=== PATIENT | female | born 1960 | race Caucasian/White ===

== ENCOUNTER 2016-05-15 16:23 | Emergency (ER) | payer BC ==
[~2016-05-15] VITALS: Ht 170.2 cm; Wt 122.3 kg
[~2016-05-15 16:23] MED LIST: ASCA500 PO; ASPEC81 PO; CHOL100010 PO; LISI-461 PO; MULT-506 PO; OMEG10007 PO; SIMV20TA2 PO; SYN125 PO
[2016-05-15 16:35] VITALS: TEMP 36.9; Ht 170.2 cm; Wt 122.3 kg
[2016-05-15] MEDS ORDERED: SODIUM CHLORIDE 0.9% 1000ML 500 ML IV STA (16:50)
--- NOTE | 2016-05-15 16:55 | EMERGENCY ROOM VISIT NOTE ---
History Report prepared by Sylvia: Jay De Leon Under the Supervision of: Dr. Jose Garces M.D. First contact with patient: 16:43 Chief Complaint: ANXIETY Stated Complaint: HEART PALPATATIONS, ANXIETY History of Present Illness The patient is a 56 year old female who presents to the Emergency Room with concerns over intermittent heart palpitations that began one week prior to arrival. The patient states that she has experienced the palpitations at some point throughout the day every day over the past week. Most often the palpitations come at night while she is trying to fall asleep. At night it feels as though her heart is "jumping around." The patient states that the episodes usually last anywhere from 1-15 minutes before resolving spontaneously. She was diagnosed with palpitations in 2003, and at the same time was diagnosed with a thyroid condition. The patient does have a history of anxiety and has been under increased stress over the past two weeks. Over the past two weeks she experienced the loss of her eexwvd-re-oid, pain in her neck from a bulging cervical disk, and a head cold. She has been taking Ativan to help her relax, but it is not remedying the palpitations. She was on Prednisone for her neck but she stopped this at least a week ago. 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 A total of 10 systems reviewed and were otherwise negative. Past Medical & Surgical Medical Problems: (1) Anxiety Family History No pertinent family history recorded. Social History Alcohol Use: occasionally Marital Status: Housing Status: lives with significant other Occupation Status: employed Current/Historical Medications Scheduled Aspirin (Aspirin Ec), 81 MG PO DAILY B-Complex W/Biotin & Folic Aci (Super B-100), 1 TAB PO DAILY Cholecalciferol (Vitamin D3), 1 TAB PO DAILY Fish Oil (Lookout-3), 1 CAP PO DAILY Levothyroxine Sodium (Synthroid), 175 MCG PO DAILY Multivitamin (Multivitamin), 1 TAB PO DAILY Pravastatin Sod (Pravastatin Sodium), 10 MG PO DAILY Vitamins C & E (Vitamin C), 1 CAP PO DAILY Scheduled PRN Lorazepam (Ativan), 0.5 MG PO Q6H PRN for Anxiety Allergies Coded Allergies: Doxycycline (Unverified Allergy, Severe, RASH, 05/15/16) Sulfa Antibiotics (Unverified Allergy, Intermediate, RASH, HIVES, 05/15/16) Uncoded Allergies: SULFA (Allergy, Unknown, HIVES, SWELLING, HEART PALPITATIONS, 08/03/02) Physical Exam Vital Signs Date Time Temp Pulse Resp B/P Pulse Ox O2 Delivery O2 Flow Rate FiO2 05/15/16 18:25 80 16 134/85 05/15/16 18:19 81 05/15/16 17:51 82 18 166/116 94 Room Air 05/15/16 16:35 36.9 96 18 194/103 96 Room Air Physical Exam GENERAL: Patient is in no acute distress. HEENT: No acute trauma, normocephalic atraumatic, mucous membranes moist, no nasal congestion, no scleral icterus. TMs are clear bilaterally. NECK: No stridor, no adenopathy, no meningismus, trachea is midline. LUNGS: Clear to auscultation bilaterally, no wheeze, no rhonchi, breath sounds equal. HEART: Without murmurs gallops or rubs, regular rate and rhythm. ABDOMEN: Soft, nontender, bowel sounds positive, no hernias, no peritonitis. EXTREMITIES: No cyanosis or edema, full range of motion of all the joints without pain or difficulty, no signs for acute trauma. NEUROLOGIC: Oriented x 3, no acute motor or sensory deficits, no focal weakness. SKIN: No rash, no jaundice, no diaphoresis. Medical Decision & Procedures ER Provider Diagnostic Interpretation: X ray results and stated below per my interpretation and radiologist interpretation. Other radiology results and stated below per my review and radiologist interpretation: CHEST ONE VIEW PORTABLE CLINICAL HISTORY: Chest pain. Palpitations. COMPARISON STUDY: Chest radiograph July 20, 2012 and FINDINGS: Lung volumes are normal. Lungs are clear. There is no pneumothorax or pleural effusion. Cardiac size is at the upper limits of normal. There is no evidence of pulmonary edema. IMPRESSION: No acute cardiopulmonary findings. Electronically signed by: Jasvir Echavarria M.D. 05/15/2016 5:18 PM Dictated Date/Time: 05/15/2016 5:17 PM Laboratory Results 05/15/16 17:42 05/15/16 17:42 Test 05/15/16 17:42 Red Blood Count 4.55 M/uL (4.2-5.4) Mean Corpuscular Volume 88.8 fL (80-100) Mean Corpuscular Hemoglobin 30.3 pg (25-34) Mean Corpuscular Hemoglobin Concent 34.2 g/dl (32-36) RDW Standard Deviation 42.8 fL (36.4-46.3) RDW Coefficient of Variation 13.1 % (11.5-14.5) Mean Platelet Volume 9.2 fL (7.4-10.4) Anion Gap 13.0 mmol/L (3-11) Est Creatinine Clear Calc Drug Dose 109.4 ml/min Estimated GFR () 100.2 Estimated GFR (Non- 86.5 BUN/Creatinine Ratio 24.7 (10-20) Calcium Level 9.2 mg/dl (8.5-10.1) Magnesium Level 2.2 mg/dl (1.8-2.4) Total Bilirubin 0.3 mg/dl (0.2-1) Aspartate Amino Transf (AST/SGOT) 21 U/L (15-37) Alanine Aminotransferase (ALT/SGPT) 28 U/L (12-78) Alkaline Phosphatase 77 U/L (45-117) Total Creatine Kinase 59 U/L (26-192) Troponin I < 0.015 ng/ml (0-0.045) Total Protein 7.6 gm/dl (6.4-8.2) Albumin 3.9 gm/dl (3.4-5.0) Globulin 3.7 gm/dl (2.5-4.0) Albumin/Globulin Ratio 1.1 (0.9-2) Thyroid Stimulating Hormone (TSH) 2.760 uIu/ml (0.300-4.500) Free Thyroxine 1.31 ng/dl (0.80-1.60) Laboratory results reviewed by me. Medications Administered Medications (Trade) Dose Ordered Sig/Sandrine Route Start Time Stop Time Status Last Admin Dose Admin Sodium Chloride (Nss 1000ml) 500 ml @ 999 mls/hr Q31M STAT IV 05/15/16 16:50 05/15/16 17:20 DC 05/15/16 16:50 999 MLS/HR ECG Indication: palpitations Rate (beats per minute): 86 Rhythm: normal sinus Findings: no acute ischemic change, no ectopy, other (Poor R-wave progression) ED Course 1644: The patient was evaluated in room B9. A complete history and physical exam was performed. 1650: Ordered Sodium Chloride 500 mL @ 999 mL/hr IV. 184: I reevaluated the patient at this time. I discussed results and discharge instructions: She verbalized understanding and agreement. The patient is ready for discharge. Medical Decision Differential diagnosis include: Anxiety, viral illness, electrolyte imbalance, anemia, dysrhythmia, cardiomegaly, and thyroid disorder. There is no leukocytosis or concerning anemia. No significant electrolyte abnormality, kidney failure, hepatitis. The patient appears to be in a euthyroid state. EKG shows a normal sinus rhythm, no acute ischemia. Cardiac enzyme testing times one is not consistent with acute cardiac injury. Chest film shows no cardiomegaly, pneumonia or CHF. On exam, there were no focal neurologic deficits. The patient was not toxic, febrile or in any distress. The patient received IV saline, she has done well. She has had no recurrence of symptoms. Her rhythm has been sinus on the monitor. The patient is being discharged, she was reassured. She was encouraged to stay well hydrated. She will talk with her doctor tomorrow about possibly a Holter monitor. She was encouraged to return here for more persistent or longer lasting symptoms. I suspect her presentation today is multifactorial--her stress, her lack of sleep, her recent viral illness are all likely partly responsible for her presentation today. Impression Primary Impression: Palpitations Scribe Attestation The scribe's documentation has been prepared under my direction and personally reviewed by me in its entirety. I confirm that the note above accurately reflects all work, treatment, procedures, and medical decision making performed by me. Departure Information Dispostion Home / Self-Care Referrals Nick Gonsalez Jr,D.O. (PCP) Forms HOME CARE DOCUMENTATION FORM, IMPORTANT VISIT INFORMATION Patient Instructions My [facility] Additional Instructions ab testing today was all ok follow with jimbo odonnell this week--you may need a Holter monitor return for worsening symptoms
--- NOTE | 2016-05-15 17:19 | DIAGNOSTIC IMAGING REPORT ---
CHEST ONE VIEW PORTABLE CLINICAL HISTORY: Chest pain. Palpitations. COMPARISON STUDY: Chest radiograph July 20, 2012 and FINDINGS: Lung volumes are normal. Lungs are clear. There is no pneumothorax or pleural effusion. Cardiac size is at the upper limits of normal. There is no evidence of pulmonary edema. IMPRESSION: No acute cardiopulmonary findings. Electronically signed by: Jasvir Echavarria M.D. 05/15/2016 5:18 PM Dictated Date/Time: 05/15/2016 5:17 PM
[2016-05-15 17:51] VITALS: O2SAT 94
[2016-05-15 17:52] LABS: HEMATOCRIT 40.4 % (37-47); MEAN CELL VOLUME 88.8 fL (80-100); MEAN CORPUSCULAR HEMOGLOBIN 30.3 pg (25-34); MEAN CORPUSCULAR HGB CONC 34.2 g/dl (32-36); MEAN PLATELET VOLUME 9.2 fL (7.4-10.4); PLATELET COUNT 224 K/uL (130-400); RED BLOOD COUNT 4.55 M/uL (4.2-5.4); WHITE BLOOD COUNT 5.99 K/uL (4.8-10.8)
[2016-05-15 18:08] LABS: ALT/SGPT 28 U/L (12-78); AST/SGOT 21 U/L (15-37); BLOOD UREA NITROGEN 19 mg/dl (7-18); BUN/CREATININE RATIO 24.7 (10-20); CALCIUM 9.2 mg/dl (8.5-10.1); CARBON DIOXIDE 23 mmol/L (21-32); CHLORIDE 107 mmol/L (98-107); CREATININE 0.76 mg/dl (0.60-1.20); GLUCOSE 83 mg/dl (70-99); MAGNESIUM 2.2 mg/dl (1.8-2.4); POTASSIUM 3.8 mmol/L (3.5-5.1); SODIUM 143 mmol/L (136-145)
[2016-05-15 18:16] LABS: ALB/GLOB RATIO 1.1 (0.9-2); ALKALINE PHOSPHATASE 77 U/L (45-117)
[2016-05-15 18:25] VITALS: BP 134/85; PULSE 80
[2016-05-15] MEDS ORDERED: CHOL1000 PO (18:44)
[2016-05-15] MEDS ORDERED: LORA-741 PO (18:44)
[2016-05-15] MEDS ORDERED: VITACAP26 PO (18:44)
[2016-05-15] MEDS ORDERED: ASPI81TA28 PO (18:44)
[2016-05-15] MEDS ORDERED: OMEG10007 PO (18:44)
[2016-05-15] MEDS ORDERED: LEVO175T PO (18:44)
[2016-05-15] MEDS ORDERED: PRVC10 PO (18:44)
[2016-05-15] MEDS ORDERED: B-COTAB4 PO (18:44)
[2016-05-15] MEDS ORDERED: MULT-506 PO (18:44)
[2016-07-01] MEDS ORDERED: OMEP20CA59 PO (10:06)
== END 2016-05-15 18:47 | disposition home or self-care (01) ==
LOC: C.EDB 16:25
DX: R00.2 Palpitations (principal); F41.9 Anxiety disorder, unspecified; Z79.82 Long term (current) use of aspirin; Z79.899 Other long term (current) drug therapy

== ENCOUNTER → 2016-06-21 | Outpatient (CLI) | payer BC ==
[~2016-06-21] MED LIST changes: -ASCA500 PO; -ASPEC81 PO; +ASPI81TA28 PO; +B-COTAB4 PO; +CHOL1000 PO; -CHOL100010 PO; +LEVO175T PO; -LISI-461 PO; +LORA-741 PO; +OMEP20CA59 PO; +PERFLUTREN LIPID MICROSPHERE (DEFINITY) IV ONE; +PRVC10 PO; -SIMV20TA2 PO; -SYN125 PO; +VITACAP26 PO
--- NOTE | 2016-06-21 21:02 | EXERCISE STRESS ECHO ---
*NOTICE TO RECEIVING DEMOCRAT AGENCY This information is strictly Confidential and protected under [place] law. [place] law prohibits you from making any further disclosure of this information unless further disclosure is expressly permitted by the written consent of the person to whom it pertains or is authorized by law. A general authorization for the release of medical or other information is not sufficient for this purpose. Hospital accepts no responsibility if the information is made available to any other person, INCLUDING THE PATIENT. Interpretation Summary * Name: DES YEUNG Study Date: 06/21/2016 08:38 AM BP: 139/80 mmHg * Patient Location: [facility] HR: 94 * : 1960 (M/d/yyyy) Gender: Female Height: 66 in * Age: 56 yrs Ethnicity: CA Weight: 262 lb * Referring Physician: JORGE * Performed By: Amber Swenson RDCS * * Reason For Study: PALPITATIONS * BSA: 2.2 m2 * History: PALPITATIONS, EXERTIONAL DYSPNEA * -- Conclusions -- * Stress Echo: * 1. Negative stress echo for ischemia at 96% MPHR. * 2. Negative exercise ECG for ischemia at 96% MPHR. * 3. No chest pain reported. * 4. Appropriate blood pressure response to exercise. * 5. No arrhythmia. * 6. Poor exercise tolerance. * 7. Technically difficult study, enhanced with IV Definity. * Echo: * 1. Normal left ventricular size and systolic function. EF 60-65%. No regional wall motion abnormalities. No left ventricular hypertrophy. Type 1 diastolic dysfunction. * 2. No significant valvular abnormalities visualized. * 3. Technically difficult study. Procedure Details * ECHOEX, CPT #53966 * A contrast injection of Definity was performed to improve assessment of LV function. * Contrast was injected into an intravenous site in the right arm. * One vial of Definity ultrasound contrast was diluted in normal saline to a total volume of 10 ml. A total of '4' ml of solution was administered during imaging. * Lot # [id number] of Definity utilized for procedure. * Expiration date JUL 19. * The attending nurse who injected the contrast agent was FRANDY CLIFTON RN. Left Ventricle * The left ventricle is normal in size. * There is normal left ventricular wall thickness. * Ejection Fraction = 60-65%. * Left ventricular systolic function is normal. * Resting wall motion: Normal. Stress wall motion: Appropriate increase in Left ventricular systolic function and decrease in cavity size. No stress induced segmental wall motion abnormalities. * The left ventricular ejection fraction increases normally with stress. The left ventricular end-systolic cavity size reduces post-stress (normal response). The left ventricular wall motion with stress is normal. Right Ventricle * The right ventricle is normal in size and function. * The right ventricular systolic function is normal as assessed by tricuspid annular plane systolic excursion (TAPSE) (normal >1.5 cm). Atria * The left atrial size is normal. * Right atrial size is normal. * There is no evidence of atrial septal defect, but resolution does not allow assessment for a patent foramen ovale. Mitral Valve * The mitral valve is grossly normal. * There is no mitral valve stenosis. * Significant mitral regurgitation is absent. Tricuspid Valve * The tricuspid valve is not well visualized, but is grossly normal. * There is no tricuspid stenosis. * Significant tricuspid regurgitation is absent. Aortic Valve * The aortic valve is not well visualized. * No hemodynamically significant valvular aortic stenosis. * No aortic regurgitation is present. Pulmonic Valve * The pulmonary valve is inadequately visualized, but the Doppler data is adequate for interpretation. * There is no significant pulmonary regurgitation. Great Vessels * The aortic root is normal size. * Ascending aorta of normal dimension Pericardium * There is no pericardial effusion. Stress Parameters * NSR at 91 bpm. * Stress ECG: No ST changes. No arrhythmias. * No arrhythmia were noted with stress. * The stress portion of this study was personally supervised by the undersigned interpreting physician. * Rest heart rate was '94' BPM. * Rest blood pressure was '139/80' * Maximum heart rate achieved was 155 bpm. * Maximum heart rate was 96 % of maximum age-predicted heart rate. * Maximum blood pressure was '196/82' * Total exercise time was '3:58' * Maximum exercise MET level achieved was '5.70' METS * Maximum treadmill speed was '2.50' miles per hour. * Maximum treadmill elevation was '12.00'% grade. * Exercise was terminated due to 'fatigue' * Normal blood pressure response to exercise. MMode 2D Measurements and Calculations IVSd 0.92 cm IVSs 1.3 cm LVIDd 5.1 cm LVIDs 3.4 cm LVPWd 0.84 cm LVPWs 1.7 cm IVS/LVPW 1.1 FS 33.7 % EDV(Teich) 121.8 ml ESV(Teich) 46.1 ml EF(Teich) 62.2 % EDV(cubed) 129.8 ml ESV(cubed) 37.9 ml EF(cubed) 70.8 % % IVS thick 46.0 % % LVPW thick 97.0 % LV mass(C)d 156.6 grams LV mass(C)dI 69.8 grams/m\S\2 LV mass(C)s 182.3 grams LV mass(C)sI 81.3 grams/m\S\2 SV(Teich) 75.7 ml SI(Teich) 33.7 ml/m\S\2 SV(cubed) 91.9 ml SI(cubed) 41.0 ml/m\S\2 Ao root diam 3.2 cm Ao root area 8.2 cm\S\2 LA dimension 3.1 cm asc Aorta Diam 2.6 cm LA/Ao 0.97 Doppler Measurements and Calculations MV E max grabiel 52.4 cm/sec MV A max grabiel 59.7 cm/sec MV E/A 0.88 MV dec time 0.21 sec Ao V2 max 126.8 cm/sec Ao max PG 6.4 mmHg Ao max PG (full) 3.2 mmHg LV V1 max PG 3.3 mmHg LV V1 max 90.2 cm/sec TV E max grabiel 55.3 cm/sec
== END | disposition home or self-care (01) ==
LOC: C.CPL 08:29
DX: R00.2 Palpitations (principal); R06.9 Unspecified abnormalities of breathing

== ENCOUNTER → 2016-07-26 | Outpatient (CLI) | payer BC ==
[~2016-07-26] MED LIST changes: -PERFLUTREN LIPID MICROSPHERE (DEFINITY) IV ONE
--- NOTE | 2016-07-27 14:36 | MAMMOGRAPHY REPORT ---
BILATERAL DIGITAL SCREENING MAMMOGRAM TOMOSYNTHESIS WITH CAD: 07/26/2016 CLINICAL HISTORY: Routine screening. Patient has no complaints. TECHNIQUE: Breast tomosynthesis in addition to standard 2D mammography was performed. Current study was also evaluated with a Computer Aided Detection (CAD) system. COMPARISON: Comparison is made to exams dated: 07/08/2015 mammogram, 06/11/2014 mammogram, 04/05/2012 ma mmogram, 03/31/2011 mammogram, 03/29/2010 mammogram - [facility], and 12/18/2008. BREAST COMPOSITION: There are scattered areas of fibroglandular density in both breasts. FINDINGS: No suspicious mass, architectural distortion or cluster of microcalcifications is seen. IMPRESSION: ACR BI-RADS CATEGORY 1: NEGATIVE There is no mammographic evidence of malignancy. A 1 year screening mammogram is recommended. The p atient will receive written notification of the results. Approximately 10% of breast cancers are not detected with mammography. A negative mammographic repor t should not delay biopsy if a clinically suggestive mass is present. Krysta Wade M.D. ay/:07/27/2016 07:07:53 [employer]ating [employer]: Marlene JIMENEZ(R)(M), [facility] letter sent: Normal 1/2 BI-RADS Code: ACR BI-RADS Category 1: Negative
== END | disposition home or self-care (01) ==
LOC: C.MAMM 15:58
DX: Z12.31 Encounter for screening mammogram for malignant neoplasm of breast (principal)

== ENCOUNTER → 2016-09-15 | Outpatient (CLI) | payer BC ==
--- NOTE | 2016-09-15 10:45 | DIAGNOSTIC IMAGING REPORT ---
RIGHT HIP UNILATERAL MIN 2 VIEWS CLINICAL HISTORY: RIGHT HIP PAIN Right COMPARISON STUDY: None. FINDINGS: No fracture or dislocation within the right hip. The visualized pelvic bones are intact. Severe cartilage space narrowing within the superior aspect of the right hip with associated subchondral sclerosis and acetabular osteophytes. This is consistent with osteoarthritis. No evidence for femoral head collapse. Subchondral cystic change within the superior acetabulum. Calcifications at the pelvis favor fibroids. IMPRESSION: 1. No fracture or dislocation within the right hip. 2. Severe right hip osteoarthritis. Electronically signed by: Arden Ryan M.D. 09/15/2016 10:43 AM Dictated Date/Time: 09/15/2016 10:42 AM
== END | disposition home or self-care (01) ==
LOC: C.RDSM 14:15
PROVIDERS: ATTEND Family Medicine
DX: M16.11 Unilateral primary osteoarthritis, right hip (principal)

== ENCOUNTER → 2016-10-18 | Outpatient (CLI) | payer BC ==
--- NOTE | 2016-10-18 13:29 | DIAGNOSTIC IMAGING REPORT ---
LUMBAR SPINE MIN 4 VIEWS CLINICAL HISTORY: Low back pain radiating to right lower extremity. COMPARISON: None FINDINGS: Alignment of the lumbar spine is anatomic. Vertebral body heights are maintained. There is no fracture or suspicious lesion. There is moderate multilevel disc space narrowing, osteophytosis and vacuum disc phenomenon. There is moderate multilevel facet arthrosis. Marked right hip joint space narrowing with subchondral sclerosis and geodes is noted. IMPRESSION: 1. No acute lumbar spine fracture or subluxation 2. Moderate multilevel degenerative disc disease and facet arthrosis of the lumbar spine. 3. Severe osteoarthritis of the right hip. Electronically signed by: Jasvir Echavarria M.D. 10/18/2016 1:28 PM Dictated Date/Time: 10/18/2016 1:26 PM
== END | disposition home or self-care (01) ==
LOC: C.RDSM 12:57
PROVIDERS: ATTEND Physician Assistant
DX: M51.36 Other intervertebral disc degeneration, lumbar region (principal); M16.12 Unilateral primary osteoarthritis, left hip

== ENCOUNTER → 2016-12-27 | Outpatient (CLI) | payer BC ==
--- NOTE | 2016-12-27 16:37 | DIAGNOSTIC IMAGING REPORT ---
LEFT KNEE INCLUDING BILATERAL STANDING AP VIEWS (4 VIEWS) CLINICAL HISTORY: LEFT KNEE PAIN COMPARISON: None DISCUSSION: There is mild bilateral medial joint compartment narrowing. There is a small dorsal patellar spur on the left. There are no acute fractures. There are no erosive or destructive changes. IMPRESSION: 1. No acute fractures 2. Mild osteoarthritic changes most pronounced within the medial joint compartment and patellofemoral joint. Electronically signed by: Vincenzo Bonner M.D. 12/27/2016 4:35 PM Dictated Date/Time: 12/27/2016 4:34 PM
== END | disposition home or self-care (01) ==
LOC: C.RDSM 13:19
PROVIDERS: ATTEND Physician Assistant
DX: M25.562 Pain in left knee (principal)

== ENCOUNTER → 2017-02-08 | Outpatient (CLI) | payer BC ==
--- NOTE | 2017-02-08 16:52 | DIAGNOSTIC IMAGING REPORT ---
MRI OF THE LEFT KNEE CLINICAL HISTORY: Left knee pain. COMPARISON STUDY: Radiographs of the left knee dated 12/27/2016. TECHNIQUE: MRI of the left knee was performed utilizing proton density, T1, and T2-weighted sequences in the axial, sagittal, coronal planes. IV contrast was not administered for this examination. FINDINGS: Menisci: There is a large complex tear with maceration involving the body and posterior horn of the medial meniscus which is peripherally extruded. No flipped fragment is seen. The lateral meniscus appears Intact. Ligaments: The anterior and posterior cruciate ligaments are intact. There is mild thickening and irregularity of the medial collateral ligament, with fluid seen on both sides of the ligament. The fibers of the ligament are intact and this suggests grade 1 injury. The lateral collateral ligament complex is preserved. Extensor mechanism: The extensor mechanism is intact. Hoffa's fat pad is normal in appearance. Articular cartilage and bone: There is moderate chondromalacia patella, with full-thickness cartilage loss seen at the patellar apex and involving the medial patellar facet. There is also degenerative fissuring within the cartilage of the underlying femoral trochlea. Mild reactive marrow edema is seen within the medial patellar facet. There is less than 50% thinning of the articular cartilage along the weightbearing surface in the medial compartment. No full is cartilage loss is identified. The articular cartilage of the lateral compartment appears preserved. There is no MRI evidence of fracture. Degenerative beaking is noted in the tibial spine and there are tiny marginal osteophytes. Joint effusion: There is a moderate joint effusion. Soft tissues: There is mild generalized atrophy of the regional musculature. No intramuscular edema is seen. A trace popliteal cyst measures up to 2 cm. Venous varicosities are noted within the medial soft tissues prepatellar soft tissue edema is identified.. IMPRESSION: 1. There is a large complex tear with maceration involving the body and posterior horn of the medial meniscus. The meniscus is peripherally extruded. 2. Findings suggest grade 1 injury of the medial collateral ligament. 3. The lateral meniscus, the cruciate ligaments, and the lateral collateral ligament complex are preserved. 4. Moderate joint effusion and tiny popliteal cyst. 5. Arthritic change as above with chondromalacia patella. Electronically signed by: Jose Castro M.D. 02/08/2017 4:50 PM Dictated Date/Time: 02/08/2017 4:44 PM
== END | disposition home or self-care (01) ==
LOC: C.MRIBC 15:19
DX: S83.242A Other tear of medial meniscus, current injury, left knee, initial encounter (principal); M25.462 Effusion, left knee; X58.XXXA Exposure to other specified factors, initial encounter

== ENCOUNTER → 2017-02-15 | Outpatient (CLI) | payer BC | END | disposition home or self-care (01) | LOC: C.RDSM 12:55 | PROVIDERS: ATTEND Orthopaedic Surgery | DX: M79.604 Pain in right leg (principal); M79.605 Pain in left leg ==

== ENCOUNTER → 2017-04-10 | Outpatient (CLI) | payer BC, OTHER ==
--- NOTE | 2017-04-10 10:54 | DIAGNOSTIC IMAGING REPORT ---
LEFT SHOULDER 3 VIEWS HISTORY: LEFT SHOULDER PAIN COMPARISON: None. FINDINGS: There is no fracture or dislocation. Soft tissues are unremarkable. The left clavicle is intact. Tiny punctate calcification at the distal supraspinatus tendon. This is consistent with a calcific tendinitis. IMPRESSION: 1. No fracture or dislocation within the left shoulder. 2. Mild supraspinatus calcific tendinitis Electronically signed by: Arden Ryan M.D. 04/10/2017 10:52 AM Dictated Date/Time: 04/10/2017 10:46 AM
== END | disposition home or self-care (01) ==
LOC: C.RDSM 10:10
PROVIDERS: ATTEND Physician Assistant
DX: M75.32 Calcific tendinitis of left shoulder (principal)

== ENCOUNTER → 2017-05-15 | Outpatient (CLI) | payer OTHER ==
--- NOTE | 2017-05-15 09:45 | DIAGNOSTIC IMAGING REPORT ---
CERVICAL SPINE 5 VIEWS HISTORY: CERVICAL RADICULOPATHY COMPARISON: Cervical spine 11/27/2012. FINDINGS: The cervical spine is visualized from C1 through the superior endplate of T1. There is no fracture. No subluxation. Straightening of the cervical spine. There is moderate disc space narrowing at C3-C4 and mild disc space narrowing at C4-C5 with small endplate osteophytes. There is also moderate to severe disc space narrowing at C6-C7 with small endplate osteophytes. This is similar to the prior study. Mild multilevel bilateral neural foraminal narrowing persists. Prevertebral soft tissues and the atlantodens interval are intact. IMPRESSION: 1. No fractures of dictation within the cervical spine. 2. Moderate disc space narrowing at C3-C4 has progressed. Remaining degenerative changes as described above are not significantly changed. Electronically signed by: Arden Ryan M.D. 05/15/2017 9:44 AM Dictated Date/Time: 05/15/2017 9:40 AM
== END | disposition home or self-care (01) ==
LOC: C.RDSM 09:32
PROVIDERS: ATTEND Physician Assistant
DX: M54.12 Radiculopathy, cervical region (principal)

== ENCOUNTER → 2017-05-26 | Outpatient (CLI) | payer OTHER ==
--- NOTE | 2017-05-26 12:05 | DIAGNOSTIC IMAGING REPORT ---
CERVICAL WITHOUT CONTRAST HISTORY: Neuropathy SHOULDER PAIN TECHNIQUE: Multiplanar multisequence MRI of the cervical spine was performed without the use of contrast. COMPARISON STUDY: None. FINDINGS: Signal characteristics of the vertebral bodies are unremarkable. Moderate degenerative disc changes noted from C3 through C7. Signal characteristics the cervical cord appear unremarkable. C2-C3: Minimal central disc bulge. No contact with the cervical cord or neural foramina. C3-C4: Mild broad-based disc herniation. Mild impact anterior cervical cord. Mild osteophytic narrowing of the neuroforamina bilaterally. C4-C5: Broad-based right central bulging disc. Moderate impact right anterior cervical cord. Moderate to rather significant narrowing of the neuroforamina bilaterally. C5-C6: Left central disc herniation creating a moderate impact upon the left anterior aspect cervical cord. Mild narrowing of the neuroforamina bilaterally. C6-C7: Broad-based left central disc herniation. No significant narrowing of the left neural foramina with moderate narrowing of the right. C7-T1: Significant osteophytic narrowing of the right neuroforamina. Moderate narrowing of the left neural foramina. IMPRESSION: 1. Significant osteophytic narrowing right neural foramina at C7-T1. 2. Broad-based left central disc herniation C6-C7. 3. Broad-based left central disc herniation C5-C6. 4. Right central disc herniation C4-C5 5. Mild broad-based disc herniation C3-C4. 6. Generalized disc degeneration from C3 through T1. The above report was generated using voice recognition software. It may contain grammatical, syntax or spelling errors. Electronically signed by: Jalil Lee M.D. 05/26/2017 12:03 PM Dictated Date/Time: 05/26/2017 11:54 AM
== END | disposition home or self-care (01) ==
LOC: C.MRIBC 10:55
PROVIDERS: ATTEND Physician Assistant
DX: M50.11 Cervical disc disorder with radiculopathy, high cervical region (principal); M50.121 Cervical disc disorder at C4-C5 level with radiculopathy; M50.122 Cervical disc disorder at C5-C6 level with radiculopathy; M50.123 Cervical disc disorder at C6-C7 level with radiculopathy; M50.31 Other cervical disc degeneration, high cervical region; M50.321 Other cervical disc degeneration at C4-C5 level; M50.322 Other cervical disc degeneration at C5-C6 level; M50.323 Other cervical disc degeneration at C6-C7 level; M50.33 Other cervical disc degeneration, cervicothoracic region

== ENCOUNTER → 2017-07-31 | Outpatient (CLI) | payer OTHER ==
--- NOTE | 2017-08-01 12:47 | MAMMOGRAPHY REPORT ---
BILATERAL DIGITAL SCREENING MAMMOGRAM TOMOSYNTHESIS WITH CAD: 07/31/2017 CLINICAL HISTORY: Routine screening. Patient has no complaints. TECHNIQUE: Breast tomosynthesis in addition to standard 2D mammography was performed. Current study was also evaluated with a Computer Aided Detection (CAD) system. COMPARISON: Comparison is made to exams dated: 07/26/2016 mammogram, 07/08/2015 mammogram, 06/11/2014 ma mmogram, 04/11/2013 mammogram, 04/05/2012 mammogram, and 03/31/2011 mammogram - [facility]. BREAST COMPOSITION: There are scattered areas of fibroglandular density in both breasts. FINDINGS: No suspicious mass, architectural distortion or cluster of microcalcifications is seen. IMPRESSION: ACR BI-RADS CATEGORY 1: NEGATIVE There is no mammographic evidence of malignancy. A 1 year screening mammogram is recommended. The pa tient will receive written notification of the results. Approximately 10% of breast cancers are not detected with mammography. A negative mammographic report should not delay biopsy if a clinically suggestive mass is present. Krysta shaffer/angelito:07/31/2017 17:11:59 Cinema Operator: Iliana JIMENEZ(R)(M), [facility] letter sent: Normal 1/2 BI-RADS Code: ACR BI-RADS Category 1: Negative
== END | disposition home or self-care (01) ==
LOC: C.MAMM 16:02
DX: Z12.31 Encounter for screening mammogram for malignant neoplasm of breast (principal)

== ENCOUNTER → 2017-08-10 | Outpatient (CLI) | payer OTHER ==
--- NOTE | 2017-08-10 08:43 | DIAGNOSTIC IMAGING REPORT ---
R HIP UNILATERAL MIN 2 VIEWS CLINICAL HISTORY: DEGENERATIVE JOINT DISEASE OF RIGHT HIP. Right hip pain. COMPARISON STUDY: Right hip 09/15/2016. FINDINGS: No fracture or dislocation within the right hip. The visualized pelvic bones are intact. Ossifications in the pelvis remain stable and favor uterine fibroids. Severe cartilage space narrowing with subchondral sclerosis and acetabular osteophytes at the superior aspect of the right hip. This remains unchanged. IMPRESSION: 1. Severe right hip osteoarthritis, unchanged. 2. No fracture or dislocation. Electronically signed by: Arden Ryan M.D. 08/10/2017 8:42 AM Dictated Date/Time: 08/10/2017 8:35 AM
== END | disposition home or self-care (01) ==
LOC: C.RDSM 13:29
PROVIDERS: ATTEND Physician Assistant
DX: M16.11 Unilateral primary osteoarthritis, right hip (principal)

== ENCOUNTER → 2017-08-18 | Outpatient (CLI) | payer OTHER | END | disposition home or self-care (01) | LOC: C.RDSM 12:59 | PROVIDERS: ATTEND Orthopaedic Surgery | DX: M16.11 Unilateral primary osteoarthritis, right hip (principal) ==